=== PATIENT | male | born 1955 | race Caucasian/White ===

== ENCOUNTER 2023-09-11 13:10 | Emergency (ER) | payer OTHER ==
[2023-09-11] MEDS ORDERED: HYDROCODONE/APAP 7.5/325 MG TAB ONE (14:10)
[2023-09-11] MEDS ORDERED: HYDROCODONE/APAP 10/325 TAB ONE (14:17)
--- NOTE | 2023-09-11 14:20 | RAD REPORT ---
EXAM DESCRIPTION: CT - [id number] - 09/11/2023 2:10 pm CLINICAL HISTORY: Trauma, head and neck injury. PAIN COMPARISON: No comparisons TECHNIQUE: Axial 5 mm thick images of the head were obtained. Axial 2 mm thick images of the cervical spine were obtained with sagittal and coronal reconstruction images generated and reviewed. All CT scans are performed using dose optimization technique as appropriate and may include automated exposure control or mA/KV adjustment according to patient size. FINDINGS: CT HEAD WITHOUT CONTRAST: No acute hemorrhage, hydrocephalus or extra-axial collection is identified.No areas of brain edema or midline shift. The paranasal sinuses and mastoids are clear.The calvarium is intact. CT CERVICAL SPINE WITHOUT CONTRAST: No fracture or subluxation.No prevertebral soft tissues swelling is identified. Multilevel degenerati ve changes are present in the spine. Varying degrees of neural foraminal narrowing bilaterally. This IMPRESSION: No acute intracranial or cervical spine findings.
--- NOTE | 2023-09-11 14:39 | RAD REPORT ---
EXAM DESCRIPTION: RAD - Humerus Left - 09/11/2023 2:26 pm CLINICAL HISTORY: PAIN COMPARISON: Head C Spine Mpr Wo Con dated 09/11/2023 FINDINGS/IMPRESSION: No acute fracture. No malalignment. No significant focal degenerative changes.
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
[2023-09-11] MEDS ORDERED: MORPHINE 4 MG/ML SYR ONE (15:25)
[2023-09-11] MEDS ORDERED: ONDANSETRON 4 MG (ODT) TAB ONE (15:25)
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
[2023-09-11 21:18] VITALS: BP 152/82; TEMP 97.8; O2SAT 100
== END 2023-09-11 16:44 | disposition home or self-care (01) ==
LOC: ER 13:10
DX: S40.022A Contusion of left upper arm, initial encounter (principal); S20.212A Contusion of left front wall of thorax, initial encounter; S09.90XA Unspecified injury of head, initial encounter; Z79.82 Long term (current) use of aspirin
CPT/HCPCS: 70450; 72125; 71045; 73060; 96372; 99285; Q0162

== ENCOUNTER 2023-09-22 09:56 | Emergency (ER) | payer OTHER ==
--- NOTE | 2023-09-22 11:55 | EDPHYS ---
Physician Documentation [facility] Name: Donald Viera Age: 68 yrs Sex: Male : 1955 Arrival Date: 09/22/2023 Time: 09:56 Bed 13 Private MD: ED Physician Yue Wade HPI: 09/21 11:11 This 68 yrs old Male presents to ER via Ambulatory with complaints of Foreign Body In sp3 Throat - chicken bone. 11:11 68-year-old male with a history of hyperlipidemia, hypertension, CAD now presents to 3 the ED with chief complaint foreign body sensation in the posterior oropharynx for the last 2 to 3 days after eating "a chicken bone". Patient also has Asencio's esophagus. Patient states that he can still handle p.o. intake including food and beverage. No airway difficulty or compromise noted. On review of systems he denies headache, cough, chest pain, shortness of breath, back pain, abdominal pain, vomiting, diarrhea, bleeding, melena, or any other signs or symptoms on ROS at this time. Patient is talking in full sentences without difficulty.. Historical: - Allergies: 10:18 Aspirin; ko1 - PMHx: 10:18 Aneurysm; Hypercholesterolemia; Hypertensive disorder; coronary atherosclerosis; ko1 - PSHx: 10:18 Stented artery; ko1 - Immunization history:: Adult Immunizations up to date. - Infectious Disease History:: Denies. - Social history:: Smoking status: Patient/guardian denies using tobacco, but has a distant history of tobacco abuse. ROS: 11:12 Constitutional: Negative for fever, chills, and weight loss, Eyes: Negative for injury, sp3 pain, redness, and discharge, Neck: Negative for injury, pain, and swelling, Cardiovascular: Negative for chest pain, palpitations, and edema, Respiratory: Negative for shortness of breath, cough, wheezing, and pleuritic chest pain, Abdomen/GI: Negative for abdominal pain, nausea, vomiting, diarrhea, and constipation, Back: Negative for injury and pain, MS/Extremity: Negative for injury and deformity, Skin: Negative for injury, rash, and discoloration, Neuro: Negative for headache, weakness, numbness, tingling, and seizure, Psych: Negative for depression, anxiety, suicide ideation, homicidal ideation, and hallucinations, Allergy/Immunology: Negative for hives, rash, and allergies, Endocrine: Negative for neck swelling, polydipsia, polyuria, polyphagia, and marked weight changes, 11:12 All other systems are negative, Exam: 11:12 Constitutional: This is a well developed, well nourished patient who is awake, alert, sp3 and in no acute distress. Head/Face: Normocephalic, atraumatic. Eyes: Pupils equal round and reactive to light, extra-ocular motions intact. Lids and lashes normal. Conjunctiva and sclera are non-icteric and not injected. Cornea within normal limits. Periorbital areas with no swelling, redness, or edema. ENT: Nares patent. No nasal discharge, no septal abnormalities noted. External auditory canals are clear. Oropharynx with no redness, swelling, or masses, exudates, or evidence of obstruction, uvula midline. Mucous membranes moist. Neck: Trachea midline, no thyromegaly or masses palpated, and no cervical lymphadenopathy. Supple, full range of motion without nuchal rigidity, or vertebral point tenderness. No Meningismus. Chest/axilla: Normal chest wall appearance and motion. Nontender with no deformity. No lesions are appreciated. Cardiovascular: Regular rate and rhythm with a normal S1 and S2. No gallops, murmurs, or rubs. Normal PMI, no JVD. No pulse deficits. Respiratory: Lungs have equal breath sounds bilaterally, clear to auscultation and percussion. No rales, rhonchi or wheezes noted. No increased work of breathing, no retractions or nasal flaring. Abdomen/GI: Soft, non-tender, with normal bowel sounds. No distension or tympany. No guarding or rebound. No evidence of tenderness throughout. Back: No spinal tenderness. No costovertebral tenderness. Full range of motion. Skin: Warm, dry with normal turgor. Normal color with no rashes, no lesions, and no evidence of cellulitis. MS/ Extremity: Pulses equal, no cyanosis. Neurovascular intact. Full, normal range of motion. Neuro: Awake and alert, GCS 15, oriented to person, place, time, and situation. Cranial nerves II-XII grossly intact. Motor strength 5/5 in all extremities. Sensory grossly intact. Cerebellar exam normal. Normal gait. Psych: Awake, alert, with orientation to person, place and time. Behavior, mood, and affect are within normal limits. Vital Signs: 10:17 BP 107 / 75; Pulse 85; Resp 14; Temp 97.1; Pulse Ox 99% on R/A; ko1 10:24 BP 129 / 84; Pulse 77; Resp 20; Pulse Ox 100% ; kn 11:44 BP 122 / 72; Pulse 65; Resp 18; Pulse Ox 99% ; kn 12:19 BP 122 / 72; Pulse 65; Resp 18; Pulse Ox 99% on R/A; ld1 MDM: 10:33 Patient medically screened. sp3 11:12 Data reviewed: vital signs, nurses notes, radiologic studies. ED course: 68-year-old sp3 male with foreign body sensation in throat. Differential diagnosis includes esophageal/pharyngeal abrasion versus retained foreign body. X-ray soft tissue of the neck AP and lateral demonstrates no foreign body on my review. We are waiting on radiology evaluation. Given patient's lack of significant symptoms, I have advised him to wait 2-3 more days to reassess and then follow back up with either his GI doctor in [place] or Dr. Flannery who I have referred him to as well. Patient is okay with the plan and we will set for probable discharge once radiology read is complete.. 09/21 10:34 Order name: Neck Soft Tissue XRAY; Complete Time: 12:03 sp3 09/21 10:34 Order name: NPO; Complete Time: 10:42 sp3 Administered Medications: No medications were administered Disposition Summary: 09/22/23 11:55 Discharge Ordered Notes: Location: Home sp3 Condition: Stable sp3 Diagnosis - Foreign body sensation, pharyngeal abrasion sp3 Followup: sp3 - With: Alanna Flannery MD - When: Upon discharge from the Emergency Department - Reason: Recheck today's complaints Discharge Instructions: - Discharge Summary Sheet sp3 - Swallowed Foreign Body, Adult sp3 Forms: - Medication Reconciliation Form sp3 - Thank You Letter sp3 - Antibiotic Education sp3 - Prescription Opioid Use sp3 - Patient Portal Instructions sp3 - Leadership Thank You Letter sp3 Signatures: Dispatcher [employer] Yue Villa MD MD sp3 Johanne Guardado, RN RN ko1
--- NOTE | 2023-09-22 11:55 | ER ---
Nurse's Notes [facility] Name: Donald Viera Age: 68 yrs Sex: Male : 1955 Arrival Date: 09/22/2023 Time: 09:56 Bed 13 Private MD: Diagnosis: Foreign body sensation, pharyngeal abrasion Presentation: 09/21 10:17 Chief complaint: Patient states: swallowed a small piece of chicken bone, the small ko1 piece off of the leg, a few days ago and it wont go down. Coronavirus screen: At this time, the client does not indicate any symptoms associated with coronavirus-19. Ebola Screen: No symptoms or risks identified at this time. Initial Sepsis Screen: Does the patient meet any 2 criteria? No. Patient's initial sepsis screen is negative. Does the patient have a suspected source of infection? No. Patient's initial sepsis screen is negative. Risk Assessment: Do you want to hurt yourself or someone else? Patient reports no desire to harm self or others. Onset of symptoms is unknown. 10:17 Method Of Arrival: Ambulatory ko1 10:17 Acuity: ROXANNA 4 ko1 Triage Assessment: 10:18 General: Appears in no apparent distress. comfortable, Behavior is calm, cooperative, ko1 appropriate for age. Pain: Denies pain. Historical: - Allergies: 10:18 Aspirin; ko1 - PMHx: 10:18 Aneurysm; Hypercholesterolemia; Hypertensive disorder; coronary atherosclerosis; ko1 - PSHx: 10:18 Stented artery; ko1 - Immunization history:: Adult Immunizations up to date. - Infectious Disease History:: Denies. - Social history:: Smoking status: Patient/guardian denies using tobacco, but has a distant history of tobacco abuse. Screenin:24 [facility] ED Fall Risk Assessment (Adult) History of falling in the last 3 months, kn including since admission No falls in past 3 months (0 pts). Abuse screen: Denies threats or abuse. Nutritional screening: No deficits noted. Tuberculosis screening: No symptoms or risk factors identified. Assessment: 10:24 Reassessment: Patient appears in no apparent distress at this time. Patient is alert, kn oriented x 3, equal unlabored respirations, skin warm/dry/pink. pt ambulatory to room, c/c: "I swallowed a chicken bone" x 3 days. pt states he feels "like something is in my throat or maybe something scratched it" pt denies difficulty swallowing/no sob, pt able to maintain oral secretions. pt is AAOx4, placed on bp cuff and pulse ox, vss, will continue to monitor pt. 10:28 Neuro: No deficits noted. Level of Consciousness is awake, alert, obeys commands, kn Oriented to person, place, time, situation, Appropriate for age. Cardiovascular: No deficits noted. Capillary refill < 3 seconds. Respiratory: No deficits noted. Airway is patent. GI: No deficits noted. : No deficits noted. EENT: Reports "swallowed a chicken bone or it scratched my throat" x 3 days. 12:19 Reassessment: Patient appears in no apparent distress at this time. No changes from ld1 previously documented assessment. Patient and/or family updated on plan of care and expected duration. Pain level reassessed. Patient is alert, oriented x 3, equal unlabored respirations, skin warm/dry/pink. Vital Signs: 10:17 BP 107 / 75; Pulse 85; Resp 14; Temp 97.1; Pulse Ox 99% on R/A; ko1 10:24 BP 129 / 84; Pulse 77; Resp 20; Pulse Ox 100% ; kn 11:44 BP 122 / 72; Pulse 65; Resp 18; Pulse Ox 99% ; kn 12:19 BP 122 / 72; Pulse 65; Resp 18; Pulse Ox 99% on R/A; ld1 ED Course: 09:59 Patient arrived in ED. im 09:59 Yue Wade MD is Attending Physician. sp3 10:18 Triage completed. ko1 10:18 Arm band placed on right wrist. Patient placed in an exam room, on a stretcher, on ko1 pulse oximetry, Patient notified of wait time. 10:24 Patient has correct armband on for positive identification. Bed in low position. Call kn light in reach. Side rails up X 1. 10:24 No provider procedures requiring assistance completed. kn 10:41 xray at bedside. kn 10:41 Provided Education on: pt edu on NPO status, pt verbalizes understanding.. kn 10:53 Neck Soft Tissue XRAY In Process Unspecified. EDMS 11:54 Alanna Flannery MD is Referral Physician. sp3 12:19 Patient did not have IV access during this emergency room visit. ld1 Administered Medications: No medications were administered Medication: 12:19 VIS not applicable for this client. ld1 Outcome: 11:55 Discharge ordered by . sp3 12:19 Discharged to home ambulatory, with family, ld1 12:19 Condition: stable 12:19 Discharge instructions given to patient, Instructed on discharge instructions, follow up and referral plans. Demonstrated understanding of instructions, follow-up care, 12:19 Patient left the ED. ld1 Signatures: Dispatcher [employer] EDMS Edna Michele, RN RN ld1 Yue Wade MD MD sp3 Johanne Guardado RN RN ko1 Anne Marie Ndiaye KARLENE RN RN kn
--- NOTE | 2023-09-22 11:57 | RAD REPORT ---
EXAM DESCRIPTION: RAD Neck Soft Tissue CLINICAL HISTORY: possible FB (chicken bone fragment) COMPARISON: Head C Spine Mpr Wo Con dated 09/11/2023 TECHNIQUE: Three views of the neck soft tissues. FINDINGS: Patulous upper airway. Epiglottis is unremarkable. Normal appearance of the hyoid bone. Ca lcifications within the expected range along the coracoid, thyroid, and adenoid cartilages. No other suspicious radiopaque foreign body or pathologic calcifications. IMPRESSION: No suspicious radiopaque foreign body..
[2023-09-22 23:57] VITALS: BP 122/72; TEMP 97.1; O2SAT 99
== END 2023-09-22 12:19 | disposition home or self-care (01) ==
LOC: ER 09:56
DX: R09.A2 Foreign body sensation, throat (principal); S10.11XA Abrasion of throat, initial encounter; K22.70 Barrett's esophagus without dysplasia; Z88.6 Allergy status to analgesic agent
CPT/HCPCS: 70360